=== PATIENT | female | born 2000 | race Two or more races ===

== ENCOUNTER 2023-05-09 18:34 | Emergency (ER) | payer OTHER ==
[~2023-05-09] VITALS: Ht 154.9 cm; Wt 81.6 kg
[2023-05-09] MEDS ORDERED: SINGULAIR10 MG PO (19:16)
== END 2023-05-09 22:19 | disposition home or self-care (01) ==
LOC: ER 18:34
DX: J00 Acute nasopharyngitis [common cold] (principal); R51.9 Headache, unspecified; R50.9 Fever, unspecified

== ENCOUNTER → 2023-05-13 | Emergency (ER) | payer OTHER ==
[~2023-05-13] VITALS: Ht 154.9 cm; Wt 81.6 kg
[~2023-05-13] MED LIST: SINGULAIR10 MG PO
== END | disposition left against medical advice (07) ==
LOC: ER 23:21
DX: Z53.21 Procedure and treatment not carried out due to patient leaving prior to being seen by health care provider (principal)